=== PATIENT | female | born 1975 | race American Indian/Alaskan Native ===

== ENCOUNTER 2020-01-28 06:03 | Day surgery (SDC) | payer OTHER ==
[2020-01-26 13:35] LABS: Hematocrit 38.5 % (30.3-42.9); Hemoglobin 12.6 gm/dl (10.1-14.3); Mean Corpuscular HGB Conc 33 % (30-34); Mean Corpuscular Volume 87 fl (79-97); Platelet Count 353 K/mm3 (140-440); Red Blood Count 4.43 M/mm3 (3.65-5.03); Red Cell Distribution Width 14.4 % (13.2-15.2)
--- NOTE | 2020-01-27 16:17 | Short Stay Summary ---
Short Stay Documentation Date of service: 01/28/20 Narrative H&P: 44y/o with undesired fertility who has elected to undergo sterilization with a salpingectomy. She is aware of other contraceptive options. The patient has been counseled on a possible exploratory laparotomy. Patient has been reassessed/reevaluated/re-examined. H&P has been reviewed. No interval changes. - History Principal diagnosis: Unwanted fertility Past Medical History: other (morbid obesity) Past Surgical History: tonsillectomy Social history: - Allergies and Medications Current Medications: Allergies No Known Allergies Allergy (Unverified 01/21/20 15:26) Home Medications Medication Instructions Recorded Confirmed Last Taken Type Meloxicam [Mobic] 15 mg PO DAILY 01/27/20 01/27/20 Unknown History Active Medications Acetaminophen (Tylenol) 1,000 mg PO PREOP REYMUNDO Stop: 01/28/20 23:59 Celecoxib (Celebrex) 200 mg PO PREOP NR Stop: 01/28/20 23:59 Gabapentin (Gabapentin) 300 mg PO PREOP NR Stop: 01/28/20 23:59 Lactated Ringer's (Lactated Ringers) 1,000 mls @ 100 mls/hr IV DIRECT REYMUNDO Stop: 01/28/20 23:59 Magnesium Oxide (Mag-Ox) 400 mg PO PREOP REYMUNDO Stop: 01/28/20 23:59 Midazolam HCl (Versed) 2 mg IV PREOP NR Stop: 01/28/20 23:59 - Physical exam General appearance: no acute distress Integumentary: no rash HEENT: Atraumatic Lungs: Clear to auscultation Breasts: deferred Heart: Regular rate Gastrointestinal: normal Female Genitourinary: deferred Rectal Exam: deferred Extremities: no ischemia Neurological: Normal gait - Brief post op/procedure progress note Date of procedure: 01/28/20 Pre-op diagnosis: Unwanted fertility Post-op diagnosis: same Procedure: Laparoscopy Bilateral salpingectomy Anesthesia: CLAIRE Surgeon: LINA TAN Estimated blood loss: minimal Pathology: list (Bilateral fallopian tubes) Specimen disposition: to lab Condition: stable - Hospital course Hospital course: The patient was admitted the day of surgery and underwent a laparoscopy and bilateral salpingectomy. Please see operative note for details of surgery. Postoperative course was uneventful. - Disposition Condition at discharge: Good Disposition: [id number] TO HOME OR SELFCARE - Discharge Diagnoses (1) Unwanted fertility Status: Acute Short Stay Discharge Plan Activity: other (Pelvic rest for 1 week) Diet: regular Additional Instructions: Follow-up is not required Follow-up as needed Prescriptions: Ibuprofen [Motrin] 800 mg PO Q8HR PRN #30 tablet PRN Reason: Pain , Severe (7-10) HYDROcodone/APAP 5-325 [Arnold 5/325] 1 each PO Q6HR PRN #15 tablet PRN Reason: Pain
[~2020-01-28 06:03] MED LIST: ACETAMINOPHEN 500 MG TAB PO SCH; CELECOXIB 200 MG CAP PO NR; GABAPENTIN 300 MG CAP PO NR; LACTATED RINGERS 1,000 ML IV SCH; MAGNESIUM OXIDE 400 MG TAB PO SCH; MIDAZOLAM 2 MG/2 ML INJ IV NR
[2020-01-28] MEDS ORDERED: BACTERIOSTATIC SODIUM CHLORIDE 0.9% 30 ML VIAL INFILTRATI ONE (06:13)
--- NOTE | 2020-01-28 07:17 | Anesthesia Consultation ---
Anesthesia Consult and Med Hx Date of service: 01/28/20 - Airway Anesthetic Teeth Evaluation: Good ROM Head & Neck: Adequate Mallampati Class: Class III Intubation Access Assessment: Possibly Difficult - Pre-Operative Health Status ASA Pre-Surgery Classification: ASA3 Proposed Anesthetic Plan: General - Pulmonary Hx Asthma: No COPD: No Hx Pneumonia: No Hx Sleep Apnea: Yes (snoring) - Cardiovascular System Hx Hypertension: No - Central Nervous System Hx Seizures: No Hx Back Pain: Yes (knee arthritis) Hx Psychiatric Problems: No - Endocrine Hx Renal Disease: No Hx End Stage Renal Disease: No Hx Hypothyroidism: No Hx Hyperthyroidism: No - Hematic Hx Anemia: No Hx Sickle Cell Disease: No - Other Systems Hx Alcohol Use: Yes (Occas) Hx Cancer: No Hx Obesity: Yes (Morbid obesity, BMI 54.7) - Additional Comments Anesthesia Medical History Comments: No previous problems with anesthesia
--- NOTE | 2020-01-28 07:17 | Anesthesia Day of Surgery ---
Anesthesia Day of Surgery - Day of Surgery Patient Examined: Yes Patient H&P Reviewed: Yes Patient is NPO: Yes
[2020-01-28] MEDS ORDERED: propofoL 200 MG/20 ML VIAL IV ONE ×2 (07:20→08:10)
[2020-01-28] MEDS ORDERED: LIDOCAINE MPF (2%) 20 MG/1 ML VIAL 5 ML ONE (07:20)
[2020-01-28] MEDS ORDERED: HYDROmorphone 1 MG/1 ML INJ ONE (07:20)
[2020-01-28] MEDS ORDERED: BUPIVACAINE/PF (0.5%) 5 MG/1 ML 30 ML VIAL INFILTRATI ONE ×2 (07:30→08:21)
[2020-01-28] MEDS ORDERED: HYDROmorphone 1 MG/1 ML INJ IV PRN (07:41)
[2020-01-28] MEDS ORDERED: SODIUM CHLORIDE 0.9% IRR 1,500 ML BOTTLE IR ONE (08:21)
[2020-01-28] MEDS ORDERED: ONDANSETRON 4 MG/2 ML INJ ONE (08:22)
[2020-01-28] MEDS ORDERED: dexAMETHasone 20 MG/5 ML VIAL ONE (08:22)
[2020-01-28] MEDS ORDERED: ROCURONIUM 50 MG/5 ML INJ IV ONE (08:22)
[2020-01-28] MEDS ORDERED: GLYCOPYRROLATE 0.4 MG/2 ML INJ ONE (08:32)
[2020-01-28] MEDS ORDERED: NEOSTIGMINE 10MG/10 ML INJ MDV ONE (08:32)
[2020-01-28] MEDS ORDERED: KETOROLAC 30 MG/1 ML INJ ONE (08:32)
--- NOTE | 2020-01-28 08:38 | Operative Report ---
Operative Report Operative Report: Date of surgery: January 28, 2020 Preoperative diagnosis: Unwanted fertility Postoperative diagnosis: Same as above Procedure: Laparoscopy; Bilateral salpingectomy Surgeon: Odalys Sandoval M.D. Anesthesia: General endotracheal anesthesia Estimated blood loss: Minimal Pathology: Bilateral fallopian tubes Findings: Normal uterus tubes and ovaries Indication: 44-year-old -0-1-3 with unwanted fertility. The patient is elected to undergo permanent sterilization. Procedure: The patient was taken to the operating room and given general endotracheal anesthesia without complication. The patient is prepped and draped in a normal sterile fashion. A bivalve speculum was placed in the patient's vagina and a single-tooth tenaculum was placed on the anterior lip of the cervix .A uterine acorn manipulator was placed, and the bivalve speculum was then removed. Attention was then turned to the patient's abdomen where a 5 mm infraumbilical skin incision was then made. A Veress needle was placed and peritoneal entry was verified water-filled syringe. Insufflation of the peritoneal cavity was performed with CO2 gas. A 5 mm trocar was placed and the laparoscope was then inserted. The patient was then placed in Trendelenburg. A 7 mm suprapubic skin incision was then made. Under direct visualization a 7 mm trocar was then placed. An additional 5 mm left lateral trocar was also placed. General survey of the patient's abdomen revealed normal uterus tubes and ovaries. The fallopian tube was then followed out to the fimbriated end. The LigaSure device was used in order to coagulate and transect the mesosalpinx. The fallopian tube was excised from the adnexa. The fallopian tube was removed through the 7 mm trocar. This was performed on the contralateral side as well. The trocars were then removed. The pneumoperitoneum was then released. The 5 mm trocar laparoscope was then removed. The skin incisions were then closed with 4-0 Monocryl. The incisions were injected with quarter percent Marcaine. Dressings were applied to the incision. The vaginal instruments were then removed atraumatically. Then successfully extubated and taken to the recovery room. All sponge laps and needle counts were correct x2.
[2020-01-28] MEDS ORDERED: HYDROcodone/ACETAMINOPHEN 5-325 MG TAB PO PRN (09:16)
[2020-01-28 10:01] VITALS: BP 140/78
--- NOTE | 2020-01-28 13:33 | Post Anesthesia Evaluation ---
- Post Anesthesia Evaluation Patient Participated: Yes Airway Patent: Yes Stable Respiratory Function: Yes Nausea/Vomiting: No Temp > 96.8F: Yes Pain Manageable: Yes Adequeate Hydration: Yes Anesthesia Complications: No
== END 2020-01-28 06:04 | disposition home or self-care (01) ==
LOC: OR 06:03
PROVIDERS: ATTEND Obstetrics & Gynecology
DX: Z30.2 Encounter for sterilization (principal); G47.30 Sleep apnea, unspecified; E66.9 Obesity, unspecified; M19.90 Unspecified osteoarthritis, unspecified site; Z79.899 Other long term (current) drug therapy; Z98.890 Other specified postprocedural states; Z68.43 Body mass index [BMI] 50.0-59.9, adult; Z72.89 Other problems related to lifestyle; Z80.8 Family history of malignant neoplasm of other organs or systems; Z82.49 Family history of ischemic heart disease and other diseases of the circulatory system
CPT/HCPCS: 36415; 58670; 84703; 85027; 88302; J1100; J1170; J1885; J2250; J2405; J2704; J2710; J7120; U0003